=== PATIENT | female | born 1985 | race Caucasian/White ===

== ENCOUNTER → 2020-01-13 | Outpatient (CLI) | payer OTHER ==
[~2020-01-13] MED LIST: FERR240T2 PO; LABE200T6 PO; LIRA0.6P INJ; METF500T17 PO; NIFE30TA13 PO; OMEP-110 PO
[2020-01-13 16:20] LABS: ALANINE AMINOTRANSFERASE 28 U/L (12-78); ALBUMIN 3.6 g/dL (3.4-5.0); ANION GAP 8 mmol/L (5-15); CALCIUM 9.4 mg/dL (8.5-10.1); CHLORIDE 107 mmol/L (98-107)
[2020-01-13 16:24] LABS: ALKALINE PHOSPHATASE 98 U/L (45-117); BILIRUBIN,TOTAL 0.5 mg/dL (0.2-1.0); CREATININE 0.85 mg/dL (0.55-1.02); TOTAL PROTEIN 7.7 g/dL (6.4-8.2)
[2020-01-13 16:40] LABS: BASOPHILS # (AUTO) 0.04 x10^3/uL (0-0.1); BASOPHILS % (AUTO) 0 % (0-1); EOSINOPHILS # (AUTO) 0.26 x10^3/uL (0-0.4); EOSINOPHILS % (AUTO) 3 % (1-7); LYMPHOCYTES # (AUTO) 2.73 x10^3/uL (1-3.4); LYMPHOCYTES % (AUTO) 29 % (22-44); MD NO; MEAN CORPUSCULAR HEMOGLOBIN 26.3 pg (27.0-34.8); MEAN CORPUSCULAR HGB CONC 32.8 g/dL (32.4-35.8); MEAN CORPUSCULAR VOLUME 80.2 fL (80-100); MONOCYTES # (AUTO) 0.65 x10^3/uL (0.2-0.8); MONOCYTES % (AUTO) 7 % (2-9); NEUTROPHILS # (AUTO) 5.85 x10^3/uL (1.8-6.8); NEUTROPHILS % (AUTO) 61 % (42-75); PLATELET COUNT 275 x10^3/uL (130-400); RED BLOOD COUNT 4.93 x10^6/uL (3.82-5.3); RED CELL DISTRIBUTION WIDTH 18.1 % (9.6-15.2)
== END | disposition home or self-care (01) ==
LOC: STAR 15:21
PROVIDERS: ATTEND Obstetrics & Gynecology
DX: Z01.818 Encounter for other preprocedural examination (principal); N94.6 Dysmenorrhea, unspecified; N94.10 Unspecified dyspareunia; N92.0 Excessive and frequent menstruation with regular cycle
CPT/HCPCS: 36415; 80053; 83036; 84703; 85025; 93005

== ENCOUNTER 2020-01-18 13:02 | Day surgery (SDC) | payer OTHER ==
[~2020-01-18] VITALS: Ht 170.2 cm; Wt 99.0 kg
[2020-01-18 13:27] VITALS: BP 133/86
[2020-01-18] MEDS ORDERED: GABAPENTIN 300 MG CAPSULE PO ONE (13:30)
[2020-01-18] MEDS ORDERED: SCOPOLAMINE 1MG PATCH TD SCH (13:30)
[2020-01-18] MEDS ORDERED: ACETAMINOPHEN 500 MG TABLET PO ONE (13:30)
[2020-01-18 13:49] LABS: HCG UR SG 1.034 (1.003-1.030)
[2020-01-18] MEDS: LACTATED RINGERS 1,000 ML IV SCH ×2 (13:50→21:58)
[2020-01-18] MEDS ORDERED: SILVER NITRATE STICK TP ONE (14:48)
[2020-01-18] MEDS ORDERED: EPINEPHRINE 1 MG/ML, 1ML ONE (14:48)
[2020-01-18] MEDS ORDERED: BUPIVACAINE/PF 0.25% ONE (14:48)
[2020-01-18] MEDS ORDERED: LABETALOL 5MG/ML, 20ML IV PRN (15:00)
[2020-01-18] MEDS ORDERED: hydrALAzine 20 MG/ML, 1ML IV PRN (15:00)
[2020-01-18] MEDS ORDERED: MEPERIDINE/PF 25MG/ML,1ML IVPush PRN (15:00)
[2020-01-18] MEDS ORDERED: FENTANYL PF 100 MCG/2ML IV PRN (15:00)
[2020-01-18] MEDS ORDERED: OXYcodone 5 MG/5 ML ORAL.SOL UDC PO PRN (15:00)
[2020-01-18] MEDS ORDERED: HALOPERIDOL 5 MG/ML IV PRN (15:00)
[2020-01-18] MEDS ORDERED: PROMETHAZINE 25 MG/ML, 1ML IV PRN (15:00)
[2020-01-18] MEDS ORDERED: FENTANYL PF 100 MCG/2ML ONE ×3 (15:04→18:08)
[2020-01-18] MEDS ORDERED: MIDAZOLAM 1 MG/ML, 2ML ONE (15:04)
[2020-01-18] MEDS ORDERED: SUCCINYLCHOLINE 20 MG/ML, 10ML ONE (17:44)
[2020-01-18] MEDS ORDERED: PROPOFOL 10 MG/ML, 20ML ONE (17:44)
[2020-01-18] MEDS ORDERED: NEOSTIGMINE 1 MG/ML, 10ML ONE (17:44)
[2020-01-18] MEDS ORDERED: ONDANSETRON 2MG/ML, 2ML ONE (17:44)
[2020-01-18] MEDS ORDERED: ROCURONIUM 10MG/ML,5ML ONE (17:44)
[2020-01-18] MEDS ORDERED: CEFAZOLIN 1,000 MG ONE (17:44)
[2020-01-18] MEDS ORDERED: DEXAMETHASONE 4 MG/ML, 1ML ONE (17:44)
[2020-01-18] MEDS ORDERED: GLYCOPYRROLATE 0.2MG/1ML, 5ML ONE (17:44)
[2020-01-18] MEDS ORDERED: HYDROmorphone 1 MG/ML, 1ML INJ ONE (18:08)
[2020-01-18] MEDS ORDERED: OXYcodone 5 MG/5 ML ORAL.SOL UDC ONE (18:08)
[2020-01-18] MEDS ORDERED: PROMETHAZINE 25 MG/ML, 1ML ONE (18:13)
[2020-01-18] MEDS: HYDROmorphone 2 MG/ML, 1ML IVPush PRN ×2 (18:25→18:35)
[2020-01-18] MEDS ORDERED: morphine SULFATE 10 MG/ML, 1ML IV PRN (20:30)
[2020-01-18] MEDS ORDERED: OXYcodone/APAP 5/325MG TABLET PO PRN (20:30)
[2020-01-18] MEDS ORDERED: KETOROLAC 30 MG/1 ML IV PRN (20:30)
[2020-01-18] MEDS ORDERED: [UNRECOGNIZED DRUG - REMARK] MC SCH (20:30)
[2020-01-18] MEDS ORDERED: OXYC-302 PO (20:37)
[2020-01-18] MEDS ORDERED: IBUP-1222 PO (20:38)
[2020-01-18] MEDS ORDERED: DOCU-131 PO (20:39)
[2020-01-18] MEDS ORDERED: FERROUS GLUCONATE 324 MG TABLET PO SCH (21:00)
[2020-01-18] MEDS ORDERED: IBUPROFEN 600 MG TABLET PO SCH (21:00)
[2020-01-18] MEDS ORDERED: LABETALOL 300 MG TABLET PO SCH (21:00)
[2020-01-18] MEDS ORDERED: LABETALOL 200 MG TABLET ONE (21:53)
[2020-01-19] MEDS ORDERED: OMEPRAZOLE 20 MG CAPSULE.DR PO SCH (06:00)
[2020-01-19] MEDS ORDERED: metFORMIN 500 MG TABLET PO SCH (08:00)
[2020-01-19] MEDS ORDERED: niFEDipine ER 30 MG TABLET.ER PO SCH (09:00)
== END 2020-01-18 23:10 | disposition home or self-care (01) ==
LOC: OUT 13:02 → 4NE 19:25 → OUT 23:10
PROVIDERS: ATTEND Obstetrics & Gynecology
DX: N94.6 Dysmenorrhea, unspecified (principal); N80.1 Endometriosis of ovary; N80.8 Other endometriosis; N92.0 Excessive and frequent menstruation with regular cycle; D50.0 Iron deficiency anemia secondary to blood loss (chronic); I10 Essential (primary) hypertension; E11.9 Type 2 diabetes mellitus without complications; E66.9 Obesity, unspecified; K21.9 Gastro-esophageal reflux disease without esophagitis; Z79.84 Long term (current) use of oral hypoglycemic drugs; Z79.899 Other long term (current) drug therapy; Z68.41 Body mass index [BMI] 40.0-44.9, adult; Z91.018 Allergy to other foods
CPT/HCPCS: 58558; 58662; 81025; 82962; 88305; J0171; J0330; J0690; J1100; J1170; J2250; J2405; J2550; J2704; J2710; J3010; J3490; J7120; G0378